=== PATIENT | female | born 1990 | race Caucasian/White ===

== ENCOUNTER 2016-09-30 15:19 | Emergency (ER) | payer OTHER ==
[2016-09-30] MEDS ORDERED: LIDOCAINE HCL 2% 20 ML VIAL ONE (15:43)
--- NOTE | 2016-09-30 16:15 | ER PHYSICIAN DOCUMENTATION ---
Physician Documentation [facility] Name:Ada Weston Age:25 yrs Sex:Female :1990 Arrival Date:09/30/2016 Time:15:19 Bed1 Private MD: Barrington Hanson Disposition: 09/30/16 16:01 Discharged to Home/Self Care. Impression: Paronychia Of Finger.. - Condition is Good. - Discharge Instructions: PARONYCHIA. - Prescriptions for Keflex 500 mg Oral - take 1 capsule by ORAL route every 12 hours for 7 days; 14 capsule. - Medical Reconciliation form form. - Follow up: Private Physician; When: As needed; Reason: Continuance of care. - Problem is new. - Symptoms have improved. HPI: 09/30 16:08 This 25 yrs old Unknown Female presents to ER via Private Vehicle with complaints of jm Abscess. 16:08 The patient presents with an abscess of the right thumb. Description: fluctuant, hot, jm pointed, raised, swollen, tense, warm. Onset: The symptom(s)/episode began/occurred 3 day(s) ago, and became worse today. The patient has been recently seen at an urgent care, this week, for similar complaints, was given a prescription for antibiotics, paronychia was drained and pt placed on Bactrim, but it has returned. . Historical: - Home Meds: 1. Bactrim DS Oral 2. Methocarbamol Oral 3. Mirtazapine Oral 4. mupiron 5. Naproxen Oral 6. neomycin 7. Ondansetron Oral 8. oxcarbazepine oral 9. Promethazine Oral 10. Melatonin Oral 11. Fexofenadine HCl Oral 12. Clonidine Oral 13. gabapentin oral - PMHx: IV and street drug abuse; - Tetanus: < 10 years. - Ebola Screening: : Patient negative for fever greater than or equal to 101.5 degrees Fahrenheit, and additional compatible Ebola Virus Disease symptoms. Patient denies exposure to infectious person. Patient denies travel to an Ebola-affected area in the 21 days before illness onset. No symptoms or risks identified at this time. . - Social history: Smoking status: Patient uses tobacco products, current every day smoker. Patient uses In [employer] for 3 days, recent hx of abusing street drugs. See [place] notes. - Immunization history: Flu Vaccine >1 year. ROS: 16:09 Constitutional: Negative for fever, malaise. jm 16:09 Skin: Positive for abscess, cellulitis. Exam: 16:09 Constitutional: The patient appears alert, awake, comfortable. jm 16:09 Skin: abscess, with pointing, cellulitis, that is mild. Vital Signs: 15:44 BP 119 / 70; Pulse 74; Resp 16; Temp 97.8(O); Pulse Ox 93% on R/A; tg Procedures: 16:10 I & D: Incision and drainage was performed for an abscess of the right right thumb jm Prepped with Betadine, Anesthetized with 10 ml's 2% Lidocaine. Incised with #11 blade. Drained small amount purulent fluid. bloody fluid. Packed with the patient tolerated the procedure well. MDM: 15:21 Patient medically screened. 16:10 Differential diagnosis: abscess. Data reviewed: vital signs, nurses notes, and as a result, I will discharge patient. Counseling: I had a detailed discussion with the patient and/or guardian regarding: the historical points, exam findings, and any diagnostic results supporting the discharge/admit diagnosis, the need for outpatient follow up, with the patient's primary care provider. ED course: Felon/Paronychia was incised and pus was released. Pt is on good staph coverage but no strep coverage so keflex was added. . 03/12 15:31 Order name: Wound Care; Complete Time: 16:01 Dispensed Medications: 16:01 Drug: Lidocaine (2 %) 10 ml; {Note: To bedside for Dr. Enriquez.} Route: Infiltration; tg 16:13 Follow up: Response: No adverse reaction tg 16:13 Drug: Tylenol 975 mg; Route: PO; tg 16:13 Follow up: Response: Medication administered at discharge. tg 16:13 Drug: Ibuprofen 800 mg; Route: PO; tg 16:14 Follow up: Response: Medication administered at discharge. tg Signatures: Noah Humphreys RN RN Barrington Plaza MD MD jm
--- NOTE | 2016-09-30 16:15 | ER NURSING DOCUMENTATION ---
Nurse's Notes [facility] Name:Ada Weston Age:25 yrs Sex:Female :1990 Arrival Date:09/30/2016 Time:15:19 Bed1 Private MD: Diagnosis:Paronychia Of Finger. Presentation: 09/30 15:21 Transition of care: [place]. tg 15:21 Acuity: ALYCIA 3 tg 15:21 Method Of Arrival: Private Vehicle tg 15:59 Presenting complaint: Patient states: Abscess on right thumb. tg Triage Assessment: 15:45 General: Appears in no apparent distress, Behavior is cooperative, quiet. Pain: tg Complains of pain in right thumb. Neuro: Level of Consciousness is awake, alert. Cardiovascular:. Respiratory: Respiratory effort is even, unlabored. GI:. Derm: Skin is pink, warm & dry. SMall scabs over much of face Abscess located on right thumb is red, is raised, Lanced in other ED previously. Historical: - Home Meds: 1. Bactrim DS Oral 2. Methocarbamol Oral 3. Mirtazapine Oral 4. mupiron 5. Naproxen Oral 6. neomycin 7. Ondansetron Oral 8. oxcarbazepine oral 9. Promethazine Oral 10. Melatonin Oral 11. Fexofenadine HCl Oral 12. Clonidine Oral 13. gabapentin oral - PMHx: IV and street drug abuse; - Tetanus: < 10 years. - Ebola Screening: : Patient negative for fever greater than or equal to 101.5 degrees Fahrenheit, and additional compatible Ebola Virus Disease symptoms. Patient denies exposure to infectious person. Patient denies travel to an Ebola-affected area in the 21 days before illness onset. No symptoms or risks identified at this time. . - Social history: Smoking status: Patient uses tobacco products, current every day smoker. Patient uses In [employer] for 3 days, recent hx of abusing street drugs. See [employer] notes. - Immunization history: Flu Vaccine >1 year. Screenin:48 Infectious Disease Risk Unable to Obtain. Abuse screen: Denies threats or abuse. Denies tg injuries from another. Nutritional screening: No deficits noted. Assessment: 16:02 Reassessment: Patient states symptoms have improved. Patient appears in no apparent tg distress at this time. Vital Signs: 15:44 BP 119 / 70; Pulse 74; Resp 16; Temp 97.8(O); Pulse Ox 93% on R/A; tg ED Course: 15:20 Patient arrived in ED. jt 15:20 Contact isolation initiated. tg 15:21 Noah Humphreys RN is Primary Nurse. tg 15:21 Triage completed. tg 15:21 Barrington Enriquez MD is Attending Physician. jm 15:48 Arm band placed on Patient Dina RN staying with patient, in room. tg 15:49 Valuables Remains with patient. tg 15:59 Assist Provider Assist provider with I & D: of an abscess on right thumb Set up I&D tg tray. Performed by Barrington Enriquez MD Culture sent to lab. Dressing with tube gauze Patient tolerated well. Administered Medications: 16:01 Drug: Lidocaine (2 %) 10 ml; {Note: To bedside for Dr. Enriquez.} Route: Infiltration; tg 16:13 Follow up: Response: No adverse reaction tg 16:13 Drug: Tylenol 975 mg; Route: PO; tg 16:13 Follow up: Response: Medication administered at discharge. tg 16:13 Drug: Ibuprofen 800 mg; Route: PO; tg 16:14 Follow up: Response: Medication administered at discharge. tg Outcome: 16:01 Discharge ordered by . reema 16:14 Discharged to [place] tg 16:14 Condition: stable 16:14 Discharge Assessment: Patient awake, alert and oriented x 3. No cognitive and/or functional deficits noted. Patient verbalized understanding of disposition instructions. 16:14 Discharge instructions given to patient, Dina RN Instructed on discharge instructions, follow up and referral plans. medication usage. 16:14 Patient left the ED. tg Signatures: Noah Humphreys, RN RN Barrington Plaza MD MD jm Tennant, Joanne jt
[2016-09-30] MEDS ORDERED: ACETAMINOPHEN 325 MG TABLET PO ONE (16:21)
[2016-09-30] MEDS ORDERED: IBUPROFEN 400 MG TABLET PO ONE (16:21)
== END 2016-09-30 16:15 | disposition home or self-care (01) ==
LOC: ER 15:19
DX: L03.011 Cellulitis of right finger (principal); B95.62 Methicillin resistant Staphylococcus aureus infection as the cause of diseases classified elsewhere; Z79.899 Other long term (current) drug therapy
CPT/HCPCS: 87070; 87077; 87186; 87205; 99283

== ENCOUNTER 2016-11-05 03:32 | Emergency (ER) | payer OTHER ==
[2016-11-05] MEDS ORDERED: HALOPERIDOL 5 MG/ML VIAL ONE (03:47)
[2016-11-05] MEDS ORDERED: BENZTROPINE MESYLATE 2 MG/2 ML AMP ONE (03:48)
[2016-11-05] MEDS ORDERED: LORazepam 2 MG/ML INJ ONE (03:50)
[2016-11-05 04:10] LABS: BASOPHIL# 0.1 X 10^3uL (0.0-0.1); BASOPHILS 1.6 % (0.0-2.0); EOSINOPHILS 0.9 % (0.0-6.0); EOSINOPHILS# 0.1 X 10^3uL (0.0-0.4); HEMATOCRIT 39.8 % (36.0-48.0); HEMOGLOBIN 13.1 g/dL (12.0-16.0); LYMPHOCYTES 23.4 % (20.0-40.0); LYMPHOCYTES# 2.1 X 10^3uL (0.8-3.8); MEAN CELL VOLUME 85.4 fL (80.0-100.0); MEAN CORPUS. HGB CONCENTRATION 32.9 g/dL (32.0-36.0); MEAN CORPUSCULAR HEMOGLOBIN 28.1 pg (29.0-35.0); MEAN PLATELET VOLUME 7.6 fL (7.4-10.4); MONOCYTES 13.2 % (2.0-10.0); MONOCYTES# 1.2 X 10^3uL (0.2-1.0); NEUTROPHILS 60.9 % (54.0-75.0); NEUTROPHILS# 5.3 X 10^3uL (2.6-6.7); PLATELET COUNT 300 X 10^3uL (130-440); RED BLOOD COUNT 4.67 X 10^6uL (4.20-6.10); RED CELL DISTRIBUTION WIDTH 12.8 % (11.5-14.5); WHITE BLOOD COUNT 8.8 X 10^3uL (3.9-10.7)
[2016-11-05 04:19] LABS: ALBUMIN 3.8 g/dL (3.5-5.0); ALKALINE PHOSPHATASE 67 U/L (38-126); ALT 52 U/L (9-52); AST 57 U/L (14-36); BILIRUBIN, DIRECT 0.2 mg/dL (0.0-0.4); BILIRUBIN, TOTAL 0.8 mg/dL (0.2-1.3); BLOOD UREA NITROGEN 10 mg/dL (7-17); CALCIUM 8.3 mg/dL (8.4-10.2); CHLORIDE 101 mmol/L (98-107); CREATININE 0.8 mg/dL (0.5-1.0); EST GLOMERULAR FILTRATION RATE > 60 mL/min; GLUCOSE 85 mg/dL (70-100); POTASSIUM 3.4 mmol/L (3.5-5.1); SODIUM 135 mmol/L (137-145); TOTAL PROTEIN 6.7 g/dL (6.3-8.2)
[2016-11-05 04:21] LABS: ACETAMINOPHEN < 10.0 ug/mL (10.0-30.0); ETHYL ALCOHOL < 10 mg/dL (<10); SALICYLATE < 1.0 mg/dL (<20.0)
[2016-11-05] MEDS ORDERED: ACETAMINOPHEN 1,000 MG/100 ML VIAL IV ONE (04:46)
[2016-11-05 04:49] LABS: THYROID STIMULATING HORMONE 0.68 uIU/mL (0.47-4.68)
--- NOTE | 2016-11-05 04:52 | ER NURSING DOCUMENTATION ---
Nurse's Notes [facility] Name:Ada Weston Age:26 yrs Sex:Female :1990 Arrival Date:11/05/2016 Time:03:32 BedTrauma-A Private MD:Physician, No Diagnosis:Heroin Abuse-/ Acute Overdose;Methamphetamine Abuse;Dehydration;Drug Abuse;Drug Dependency Presentation: 11/05 03:48 Presenting complaint: Patient states: Pt states she has overdosed on Meth and heroin mk2 tonight and she can't stop moving. Pt brought in by [facility] who stated they couldn't obtain vitals due to pt moving so much. They did confirm Pt was positive for everything except barbiturates and pcp. Transition of care: [place]. Care prior to arrival: Labs UA performed by [facility]. 03:48 Method Of Arrival: Private Vehicle 2 03:48 Acuity: ALYCIA 3 mk2 Triage Assessment: 03:55 General: Appears uncomfortable, unkempt, Behavior is agitated, restless. Pain: Denies mk2 pain. Neuro: Level of Consciousness is awake, obeys commands, Oriented to person, place, time, event. Cardiovascular: Heart tones S1 S2. Respiratory: Breath sounds are clear bilaterally. GI: No deficits noted. Derm: Pt has widespread abscesses on face and body due to meth use. Blister to left under foot. Historical: - Allergies: Toradol; - Home Meds: 1. Bactrim DS Oral 2. Methocarbamol Oral 3. Mirtazapine Oral 4. mupiron 5. Naproxen Oral 6. neomycin 7. Ondansetron Oral 8. oxcarbazepine oral 9. Promethazine Oral 10. Melatonin Oral 11. Fexofenadine HCl Oral 12. Clonidine Oral 13. gabapentin oral - PMHx: IV and street drug abuse; - PSHx: None; - Tetanus: unknown. - Ebola Screening: : Patient negative for fever greater than or equal to 101.5 degrees Fahrenheit, and additional compatible Ebola Virus Disease symptoms. Patient denies exposure to infectious person. Patient denies travel to an Ebola-affected area in the 21 days before illness onset. No symptoms or risks identified at this time. . - Immunization history: Unable to Obtain. - Social history: Smoking status: Patient states was never smoker of tobacco. Patient uses street drugs, IV drugs, heroin, cocaine, marijuana. Screenin:00 Infectious Disease Risk Unable to Obtain. Abuse screen: Denies threats or abuse. mk2 Nutritional screening: No deficits noted. Suicide Risk Assessment: Suicidal Thinking Present - No ( 0 points). Assessment: 04:00 See Triage Assessment done by same RN. mk2 Vital Signs: 03:59 BP 110 / 61; Pulse 106; Resp 19; Temp 100.1; Pulse Ox 94% on R/A; Weight 63.5 kg; mk2 Height 5 ft. 2 in. (157.48 cm); Pain 0/10; 04:13 BP 102 / 44; Pulse 84; Resp 20; Pulse Ox 98% on 2 lpm NC; Pain 0/10; mk2 03:59 Body Mass Index 25.61 (63.50 kg, 157.48 cm) mk2 Patrick Coma Score: 03:54 Eye Response: spontaneous(4). Verbal Response: confused(4). Motor Response: obeys cd commands(6). Total: 14. ED Course: 03:33 Patient arrived in ED. em2 03:33 Physician, No is Private Physician. em2 03:35 Byron Webster MD is Attending Physician. cd 03:44 Port Xray Completed. ms 03:48 Cassidy Chen, RN is Primary Nurse. mk2 03:52 Triage completed. mk2 03:59 Arm band placed on Bed in low position Call Light in Reach Gowned HOB Elevated Side mk2 rails up x1 Side rails up x2 Patient Seizure pads placed. 03:59 Valuables Remains with patient. pvc monitor on. Pulse ox on. NIBP on. Lights mk2 dimmed. Verbal reassurance given. Warm blanket given. 04:00 Inserted peripheral IV: 20 gauge in left hand. Oxygen Oxygen administration via nasal mk2 cannula @ 2L/min. 04:11 Labs drawn. By Lab Staff EKG done. (by ED staff). mk2 04:12 Inserted peripheral IV: 20 gauge in right forearm. mk2 04:32 Resting quietly. mk2 Administered Medications: 04:01 Drug: Haldol (as lactate) 5 mg; Route: IM; Site: left gluteus; mk2 04:13 Follow up: Response: Anxiety decreased mk2 04:01 Drug: Ativan 1 mg; Route: IM; Site: left gluteus; mk2 04:12 Follow up: Response: Anxiety decreased mk2 04:01 Drug: Cogentin 1 mg; Route: IM; Site: right gluteus; mk2 04:12 Follow up: Response: Anxiety decreased mk2 04:02 Drug: NS 0.9% 1000 ml; Route: IV; Rate: bolus; Site: left hand; mk2 04:50 Follow up: IV Status: Completed infusion; IV Intake: 1000ml mk2 04:27 Drug: NS 0.9% 1000 ml; Route: IV; Rate: bolus; Site: right forearm; mk2 04:51 Follow up: IV Status: Infusion continued upon admission mk2 04:40 Drug: Ofirmev ; MAX of 1000 mg, give 20 mg/kg; Route: IV; Rate: 400 ml/hr; Infused mv Over: 15 mins; Site: right forearm; 04:50 Follow up: IV Status: Infusing continued upon transfer mk2 Point of Care Testin:32 Dina having trouble faxing UA results. Called in to [facility], ua positive for thc, mk2 meth, opiates, tricyclic, oxy and amphetamines. Intake: 04:50 IV: 1000ml; Total: 1000ml. mk2 Outcome: 04:21 ER care complete, transfer ordered by MD. patterson 04:49 Transferred: Patient will be transferred to: [facility]. Facility 2 Acceptance Time: November 05, 2016 at 04:20 Patient's face sheet was faxed to accepting facility. Face Sheet included patient's name, address, age, gender, contact information and insurance information. Patient will be transported by: [facility] ground. Nurse and Physician Charting and Notes were sent to Accepting Facility. All tests and/or procedures with results, if applicable, were sent to accepting facility. 04:49 Condition: stable 04:49 Instructed on need for transfer 04:51 Patient left the ED. mk2 04:56 Transferred: Report called to: Aida HICKS in the E.D 2 Signatures: Byron Webster MD MD cd Strickland, Mary ms Kruger, Cassidy, RN RN mk2 Erci-reg, Vicki 2 ruby rodriguez
--- NOTE | 2016-11-05 04:52 | ER PHYSICIAN DOCUMENTATION ---
Physician Documentation [facility] Name:Ada Weston Age:26 yrs Sex:Female :1990 Arrival Date:11/05/2016 Time:03:32 BedTrauma-A Private MD:Physician, No ED Byron Peterson Disposition: 11/05/16 04:21 Transfer ordered to [facility]. Diagnosis are Heroin Abuse - / Acute Overdose, Methamphetamine Abuse, Dehydration, Drug Abuse, Drug Dependency. - Reason for transfer: Specialty. - Accepting physician is Eric Lamb MD, [facility] ED MD. - Condition is Fair. - Problem is new. - Symptoms have improved. COBRA Form completed? Yes Transfer - Mode of Transportation Ambulance HPI: 11/05 03:43 This 26 yrs old Female presents to ER with complaints of Heroin Overdose and cd Drug Abuse. 03:43 The patient presents to the emergency department after a known overdose, that was cd accidental. Context: Method: it is confirmed or suspected that the patient injected a substance, heroin, Time: yesterday, throughout Saturday, Extent: "way too much", the OD/poisoning occurred at at home, and was witnessed no one, Psychiatric history: the patient has a known psychiatric disorder, depression, Anxiety and Addictive Personality Disorder. She denies Bipolar Illness or Schizophrenia. She has been in many rehab programs, recently at [facility] up until 1 1/2 weeks ago and relapsed recently. She states she is not suicidal. Context: Patient usually does Heroin and Meth IV in the same needle. She called her father who brought her up to [facility] [place]. She arrived and was Cyanotic. She was given Narcan. She was very fidgety. She appeared very dehydrated and her urine was tea colored. She was transported to [facility] ED for evaluation and treatment.. Associated signs and symptoms:. Severity of symptoms: At their worst the symptoms were severe in the emergency department the symptoms have improved mildly. The patient has experienced similar episodes in the past. Historical: - Allergies: Toradol; - Home Meds: 1. Bactrim DS Oral 2. Methocarbamol Oral 3. Mirtazapine Oral 4. mupiron 5. Naproxen Oral 6. neomycin 7. Ondansetron Oral 8. oxcarbazepine oral 9. Promethazine Oral 10. Melatonin Oral 11. Fexofenadine HCl Oral 12. Clonidine Oral 13. gabapentin oral - PMHx: IV and street drug abuse; - PSHx: None; - Tetanus: unknown. - Ebola Screening: : Patient negative for fever greater than or equal to 101.5 degrees Fahrenheit, and additional compatible Ebola Virus Disease symptoms. Patient denies exposure to infectious person. Patient denies travel to an Ebola-affected area in the 21 days before illness onset. No symptoms or risks identified at this time. . - Immunization history: Unable to Obtain. - Social history: Smoking status: Patient states was never smoker of tobacco. Patient uses street drugs, IV drugs, heroin, cocaine, marijuana. ROS: 03:51 Eyes: Negative for injury, pain, redness, discharge, blurry vision and loss of vision. cd ENT: Negative for injury, pain, epistaxis and discharge. Neck: Negative for injury, pain, stiffness and swelling. Back: Negative for injury, pain or muscle spasms. 03:51 MS/Extremity: Negative for injury, deformity, edema, calf tenderness, pain or coldness. cd except track toth 03:51 Constitutional: Positive for poor PO intake, Negative for chills, fever. 03:51 Cardiovascular: Negative for chest pain, edema, palpitations. 03:51 Respiratory: Negative for cough, hemoptysis, shortness of breath, wheezing. 03:51 Abdomen/GI: Positive for anorexia, Negative for abdominal pain, nausea, vomiting, diarrhea, hematemesis, black/tarry stool, rectal bleeding. 03:51 Skin: Positive for lesions, from excoriations over her entire face., Negative for cellulitis. 03:51 Neuro: Positive for altered mental status, fidgety, anxious but no seizures.. 03:51 Psych: Positive for anxiety, depression, drug dependence, Negative for alcohol dependence, auditory hallucinations, visual hallucinations, homicidal ideation, suicide gesture, suicidal ideation. 03:51 All other systems are negative. Exam: 03:54 Constitutional: The patient appears alert, awake, non-diaphoretic, non-toxic, anxious, cd in obvious distress, moderately distressed, restless, unkempt, multiple excoriated lesions over her face. Track toth on her arms. 03:54 Head/face: Noted is excoriated lesions over her face. 03:54 Eyes: Exam is negative for acute changes. 03:54 ENT: Mouth: Lips: dry, cracked, Oral mucosa: dry, Posterior pharynx: is normal. 03:54 Neck: Exam negative for acute changes. 03:54 Chest/axilla: Exam negative for acute changes. 03:54 Cardiovascular: Rate: tachycardic, actual rate is 117 bpm, Rhythm: regular, Pulses: no pulse deficits are appreciated, Heart sounds: normal, Edema: is not appreciated. 03:54 Respiratory: the patient does not display signs of respiratory distress, Respirations: normal, no acute changes, Breath sounds: are normal, clear throughout. 03:54 Abdomen/GI: Inspection: abdomen appears normal, Bowel sounds: normal, Palpation: abdomen is soft and non-tender. 03:54 Back: Exam negative for acute changes. 03:54 Neuro: Orientation: to person, Mentation: lucid, confused, Memory: unable to test, Cranial nerves: CN II- XII are normal as tested, Cerebellar function: unable to test, Motor: moves all fours. 03:54 Psych: Behavior/mood is anxious, uncooperative, depressed, Affect is flat, Oriented to person, Patient has no thoughts/intents to harm self or others. Judgement / Insight is impaired. Delusions/hallucinations are not present. Vital Signs: 03:59 BP 110 / 61; Pulse 106; Resp 19; Temp 100.1; Pulse Ox 94% on R/A; Weight 63.5 kg; mk2 Height 5 ft. 2 in. (157.48 cm); Pain 0/10; 04:13 BP 102 / 44; Pulse 84; Resp 20; Pulse Ox 98% on 2 lpm NC; Pain 0/10; mk2 03:59 Body Mass Index 25.61 (63.50 kg, 157.48 cm) mk2 [place] Coma Score: 03:54 Eye Response: spontaneous(4). Verbal Response: confused(4). Motor Response: obeys cd commands(6). Total: 14. MDM: 03:35 Patient medically screened. 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 Interpretation: hypoxia. Plan: O2 by NC applied. 04:12 Data reviewed: vital signs, nurses notes, old medical records, lab test result(s), EKG, cd radiologic studies, plain films, and as a result, I will *Transfer Patient administer IV fluids, NS bolus, NS maintenence, prescribe sedation medication, lorazepam, halperidol. 04:15 Physician consultation: was called at 04:11, was contacted at 04:14, regarding cd admission, to [facility] ED, consult, patient's condition, need to come to ED to see patient, need to evaluate the patient as soon as possible, and will see patient in ED, shortly, later today, after a discussion of the case, a recommendation for transfer for higher level of care is made. 04:16 Counseling: I had a detailed discussion with the patient and/or guardian regarding: the cd historical points, exam findings, and any diagnostic results supporting the discharge/admit diagnosis, lab results, the need to transfer to another facility, [facility] not immediately have the required specialist. Response to treatment: the patient's symptoms have mildly improved after treatment, and as a result, I will transfer patient. 04:29 Test interpretation: by ED physician or midlevel provider: plain radiologic studies, cd CXR was normal. 04:36 ED course: The patient calmed down after an IM injection of Haldol 5 mg, Ativan 1 mg cd and Cogentin 1 mg. 04:39 ECG:. 11/05 04:14 Order name: CBC AUTO DIF, MDIF/RMOR IF IND [facility] 11/05 04:21 Interpretation: Normal. 11/05 04:22 Order name: BASIC METABOLIC PANEL [facility] 11/05 04:29 Interpretation: Normal Except: POTASSIUM 3.4; Hypokalemia. 11/05 04:22 Order name: HEPATIC PANEL [facility] 11/05 04:29 Interpretation: Normal Except: AST 57. 11/05 04:22 Order name: SALICYLATE [facility] 11/05 04:29 Interpretation: Normal. 11/05 04:22 Order name: ETHYL ALCOHOL [facility] 11/05 04:29 Interpretation: Normal. 11/05 04:22 Order name: ACETAMINOPHEN [facility] 11/05 04:29 Interpretation: Normal. 11/05 04:37 Order name: CREATINE KINASE; Complete Time: 04:42 [facility] 11/05 04:42 Interpretation: Abnormal: CREATINE KINASE 907; Rhabdomyolysis. 11/05 03:38 Order name: EKG - 12 Lead; Complete Time: 04:36 cd 11/05 03:38 Order name: IV saline lock X2; Complete Time: 04:02 cd 11/05 03:38 Order name: Cardiac Monitoring - Continuous; Complete Time: 04:02 cd 11/05 03:38 Order name: Pulse Ox Continuous; Complete Time: 04:02 cd EC:12 Rate is 85 beats/min. Rhythm is regular. QRS [place] is Normal. LA interval is normal. QRS cd interval is normal. QT interval is normal. No Q waves. T waves are Inverted in leads II, III, aVF. T waves are Flattened. No ST changes noted. Clinical impression: NSR at 85/minute, Inferior NSST changes, Poor Anterior R-wave Progression. Interpreted by me. Dispensed Medications: 04:01 Drug: Haldol (as lactate) 5 mg; Route: IM; Site: left gluteus; mk2 04:13 Follow up: Response: Anxiety decreased mk2 04:01 Drug: Ativan 1 mg; Route: IM; Site: left gluteus; mk2 04:12 Follow up: Response: Anxiety decreased mk2 04:01 Drug: Cogentin 1 mg; Route: IM; Site: right gluteus; mk2 04:12 Follow up: Response: Anxiety decreased mk2 04:02 Drug: NS 0.9% 1000 ml; Route: IV; Rate: bolus; Site: left hand; mk2 04:50 Follow up: IV Status: Completed infusion; IV Intake: 1000ml mk2 04:27 Drug: NS 0.9% 1000 ml; Route: IV; Rate: bolus; Site: right forearm; mk2 04:51 Follow up: IV Status: Infusion continued upon admission mk2 04:40 Drug: Ofirmev ; MAX of 1000 mg, give 20 mg/kg; Route: IV; Rate: 400 ml/hr; Infused mv Over: 15 mins; Site: right forearm; 04:50 Follow up: IV Status: Infusing continued upon transfer mk2 Point of Care Testin:32 Dina having trouble faxing UA results. Called in to [facility] ua positive for thc, mk2 meth, opiates, tricyclic, oxy and amphetamines. Signatures: Byron Webster MD MD cd Kruger, Cassidy, RN RN mk2 rodriguez, ruby mv
--- NOTE | 2016-11-06 11:52 | RADIOLOGY REPORT ---
A limited single portable view of the chest, without prior films for comparison , demonstrates the heart, vessels and lungs to be unremarkable. No infiltrate, fluid or pneumothorax is seen. IMPRESSION: Unremarkable limited single portable view of the chest. MTDD
== END 2016-11-05 04:52 | disposition short-term general hospital (02) ==
LOC: ER 03:32
DX: T40.1X2A Poisoning by heroin, intentional self-harm, initial encounter (principal); T43.622A Poisoning by amphetamines, intentional self-harm, initial encounter; E86.0 Dehydration; R41.82 Altered mental status, unspecified; L98.8 Other specified disorders of the skin and subcutaneous tissue; F11.24 Opioid dependence with opioid-induced mood disorder; F15.24 Other stimulant dependence with stimulant-induced mood disorder; F41.9 Anxiety disorder, unspecified; F32.9 Major depressive disorder, single episode, unspecified; R00.0 Tachycardia, unspecified; E87.6 Hypokalemia; M62.82 Rhabdomyolysis; F12.129 Cannabis abuse with intoxication, unspecified; Z79.899 Other long term (current) drug therapy; Z74.3 Need for continuous supervision
CPT/HCPCS: 71010; 80048; 80076; 80307; 80320; 80329; 82550; 84443; 84703; 85025; 93005; 96361; 96372; 96374; 99285; A0425; A0426; J0515; J1630; J2060